=== PATIENT | male | born 1965 | race Caucasian/White ===

== ENCOUNTER 2020-02-25 08:19 | Inpatient (IN) | payer SELFPAY ==
[2020-02-25] MEDS ORDERED: LORAZEPAM INJ 2 MG/1 ML VIAL IV ONE ×2 (08:36→10:00)
[2020-02-25] MEDS ORDERED: NORMAL SALINE 1000 ML 1,000 ML IV ONE (08:38)
[2020-02-25 08:55] LABS: ABSOLUTE BASOPHILS # (AUTO) 0.1 10^3/uL (0.0-0.2); ABSOLUTE LYMPHOCYTES (AUTO) 1.3 10^3/uL (0.5-4.7); ABSOLUTE MONOCYTES (AUTO) 0.5 10^3/uL (0.1-1.4); ABSOLUTE NEUT (AUTO) 8.1 10^3/uL (1.7-8.2); BASOPHILS % (AUTO) 0.6 % (0-2); EOSINOPHILS % (AUTO) 0.1 % (0-6); HEMATOCRIT 47.1 % (37.9-51.0); HEMOGLOBIN 16.1 g/dL (13.5-17.0); LYMPHOCYTES % (AUTO) 12.8 % (13-45); MEAN CORPUSCULAR HEMOGLOBIN 31.8 pg (27.0-33.4); MEAN CORPUSCULAR HGB CONC 34.1 g/dL (32.0-36.0); MEAN CORPUSCULAR VOLUME 93 fl (80-97); MONOCYTES % (AUTO) 4.7 % (3-13); PLATELET COUNT 231 10^3/uL (150-450); RED BLOOD COUNT 5.05 10^6/uL (4.35-5.55); RED CELL DISTRIBUTION WIDTH 13.6 % (11.5-14.0); SEGMENTED NEUTROPHILS % (AUTO) 81.8 % (42-78); TOTAL CELLS COUNTED % (AUTO) 100 %; WHITE BLOOD COUNT 9.9 10^3/uL (4.0-10.5)
--- NOTE | 2020-02-25 09:04 | RADIOLOGY REPORT (SQ) ---
EXAM DESCRIPTION: CT HEAD WITHOUT IMAGES COMPLETED DATE/TIME: 02/25/2020 8:36 am REASON FOR STUDY: stroke s/s COMPARISON: None. TECHNIQUE: Axial images acquired through the brain without intravenous contrast. Images reviewed wi th bone, brain and subdural windows. Additional sagittal and coronal reconstructions were generated. Images stored on PACS. All CT scanners at this facility use dose modulation, iterative reconstruction, and/or weight based d osing when appropriate to reduce radiation dose to as low as reasonably achievable (ALARA). [facility]: Dose Right [facility]: CareDose [facility]: Dose Right [facility]: Teradose 4D [facility]: [employer] RADIATION DOSE: mGy. LIMITATIONS: Motion artifact. FINDINGS: VENTRICLES: Normal size and contour. CEREBRUM: No masses. No hemorrhage. No midline shift. No evidence for acute infarction. Normal gra y/white matter differentiation. No areas of low density in the white matter. CEREBELLUM: No masses. No hemorrhage. No alteration of density. No evidence for acute infarction. EXTRAAXIAL SPACES: No fluid collections. No masses. ORBITS AND GLOBE: No intra- or extraconal masses. Normal contour of globe without masses. CALVARIUM: No fracture. PARANASAL SINUSES: No fluid or mucosal thickening. SOFT TISSUES: No mass or hematoma. OTHER: No other significant finding. IMPRESSION: NORMAL BRAIN CT WITHOUT CONTRAST. EVIDENCE OF ACUTE STROKE: NO. COMMENT: Pertinent positive or negative findings of the imaging study reported as a CRITICAL EXAM t augie Connors at08:58 on 02/25/2020. Category of Critical Exam: Stroke alert. Quality ID # [id number]: Final reports with documentation of one or more dose reduction techniques (e.g., Au tomated exposure control, adjustment of the mA and/or kV according to patient size, use of iterative reconstruction technique) TECHNICAL DOCUMENTATION: JOB ID: [id number] 2010 [employer]- All Rights Reserved Reading location - IP/workstation name: [email or web address]
[2020-02-25 09:22] LABS: INTERNATIONAL RATION (INR) 0.88; PARTIAL THROMBOPLASTIN TIME 24.4 SEC (23.5-35.8); PROTHROMBIN TIME 12.1 SEC (11.4-15.4)
[2020-02-25 09:37] LABS: APPEARANCE,URINE CLEAR; BILIRUBIN,URINE NEGATIVE (NEGATIVE); COLOR,URINE YELLOW; GLUCOSE, URINE >=500 mg/dL (NEGATIVE); KETONES,URINE NEGATIVE (NEGATIVE); PROTEIN,URINE 100 mg/dL (NEGATIVE); URINE SPECIFIC GRAVITY 1.018; UROBILINOGEN,URINE NEGATIVE mg/dL (<2.0)
[2020-02-25 09:45] LABS: ALBUMIN 4.2 g/dL (3.5-5.0); ALCOHOL < 10 mg/dL (NONE DETECTED); ALKALINE PHOSPHATASE 65 U/L (38-126); ANION GAP 8 (5-19); ASPARTATE AMINO TRANSFERASE 37 U/L (17-59); BILIRUBIN,DIRECT 0.1 mg/dL (0.0-0.4); BILIRUBIN,TOTAL 0.5 mg/dL (0.2-1.3); BLOOD UREA NITROGEN 19 mg/dL (7-20); CALCIUM 9.3 mg/dL (8.4-10.2); CARBON DIOXIDE 27 mmol/L (22-30); CHLORIDE 106 mmol/L (98-107); GLUCOSE 108 mg/dL (75-110); POTASSIUM 4.1 mmol/L (3.6-5.0); TOTAL PROTEIN 7.1 g/dL (6.3-8.2)
[2020-02-25 09:49] LABS: URINE AMPHETAMINES SCREEN NEGATIVE; URINE BARBITURATES SCREEN NEGATIVE; URINE BENZODIAZEPINES SCREEN NEGATIVE; URINE COCAINE SCREEN NEGATIVE; URINE MARIJUANA (THC) SCREEN NEGATIVE; URINE METHADONE SCREEN NEGATIVE; URINE PHENCYCLIDINE SCREEN NEGATIVE
--- NOTE | 2020-02-25 10:12 | ER Document Report ---
ED Dizziness/Weakness - General Chief Complaint: Altered Mental Status Stated Complaint: POSSIBLE STROKE Time Seen by Provider: 02/25/20 08:36 Mode of Arrival: Ambulatory Information source: Relative, Emergency Med Personnel - [facility] Notes: Patient presents with altered mental status. Patient was brought in by ambulance. Ambulance reports that stated patient woke up about 5 or 6 AM and was kicking her. When she tried to talk to him he was delirious and altered. Apparently when he went to bed he was in his normal state of health. Paramedics state that his initial blood sugar was 52 and they gave him an amp of D50 however did not change his mental status. There is been no known recent vomiting or diarrhea. No recent fevers cold chills or cough. No known Covid ex posures. No known trauma. No similar previous episodes. Past Medical History - General Information source: Relative - Social History Smoking Status: Current Every Day Smoker Frequency of alcohol use: None Drug Abuse: None Family History: Reviewed & Not Pertinent Review of Systems - Review of Systems -: Yes ROS unobtainable due to patient's medical condition - Cannot obtain review of symptoms due to altered mental status Physical Exam - Vital signs Vitals: Pulse Ox 99 02/25/20 08:55 Interpretation: Normal - General General appearance: Combative - HEENT Head: Normocephalic, Atraumatic Eyes: Normal Pupils: PERRL - Respiratory Respiratory status: No respiratory distress Chest status: Nontender Breath sounds: Normal Chest palpation: Normal - Cardiovascular Rhythm: Regular Heart sounds: Normal auscultation Murmur: No - Abdominal Inspection: Normal Distension: No distension Bowel sounds: Normal Tenderness: Nontender Organomegaly: No organomegaly - Back Back: Normal, Nontender - Extremities General upper extremity: Normal inspection, Nontender, Normal color, Normal ROM, Normal temperature General lower extremity: Normal inspection, Nontender, Normal color, Normal ROM, Normal temperature, Normal weight bearing. No: Brandon's sign - Neurological Neuro grossly intact: No Cognition: Confused Orientation: Disoriented to person, Disoriented to place, Disoriented to time, Disoriented to events [place] Coma Scale Eye Opening: Spontaneous Celia Coma Scale Verbal: Incomprehensible [place] Coma Scale Motor: Localizes to Pain [place] Coma Scale Total: 11 Additional motor exam normals: Other - Patient moves all extremities. There are no focal deficits. Patient just appears delirious. He will not follow any commands. He has occasionally making some incomprehensible noises but nothing understandable. - Psychological Associated symptoms: Agitated, Psychomotor agitation - Skin Skin Temperature: Warm Skin Moisture: Dry Skin Color: Normal Course - Re-evaluation Re-evalutation: 02/25/20 10:14 Patient presents with altered mental status. Patient would not follow any commands. He has been on purposeful flailing of the arms and legs. His vital signs however have been stable and normal. Head CT is unremarkable. All laboratories are essentially unremarkable. He has a history of diabetes but his glucose here is normal at 84. He has no focal deficits. His tox screen and alcohol level are also normal. Because the patient's delirium at this time is not obvious. He will need admitted and possibly will have to be consciously sedated for further testing such as an MRI. - Vital Signs Vital signs: Temp Pulse Resp BP Pulse Ox 99 02/25/20 08:55 - Laboratory Result Diagrams: 02/25/20 08:42 02/25/20 08:42 Laboratory results interpreted by me: 02/25/20 02/25/20 08:42 09:11 Lymph % (Auto) 12.8 L Seg Neutrophils % 81.8 H Urine Protein 100 H Urine Glucose (UA) >=500 H - Diagnostic Test Radiology reviewed: Image reviewed, Reports reviewed - EKG Interpretation by Me EKG shows normal: Sinus rhythm Rate: Normal - 69 Rhythm: NSR [place]/QRS: No: Right axis deviation, Left axis deviation Discharge - Discharge Clinical Impression: Delirium Condition: Serious Disposition: ADMITTED INPATIENT Admitting Provider: Ludin (Hospitalist) Unit Admitted: [facility]
--- NOTE | 2020-02-25 10:28 | RADIOLOGY REPORT (SQ) ---
EXAM DESCRIPTION: CHEST SINGLE VIEW IMAGES COMPLETED DATE/TIME: 02/25/2020 10:16 am REASON FOR STUDY: stroke s/s COMPARISON: None. EXAM PARAMETERS: NUMBER OF VIEWS: One view. TECHNIQUE: Single frontal radiographic view of the chest acquired. RADIATION DOSE: NA LIMITATIONS: None. FINDINGS: LUNGS AND PLEURA: No opacities, masses or pneumothorax. No pleural effusion. MEDIASTINUM AND HILAR STRUCTURES: No masses. Contour normal. HEART AND VASCULAR STRUCTURES: Heart normal in size. Normal vasculature. BONES: No acute findings. HARDWARE: None in the chest. OTHER: No other significant finding. IMPRESSION: NO ACUTE RADIOGRAPHIC FINDING IN THE CHEST. TECHNICAL DOCUMENTATION: JOB ID: [id number] 2010 [email or web address]- All Rights Reserved Reading location - IP/workstation name: [email or web address]
[2020-02-25] MEDS ORDERED: ACETAMINOPHEN 650 MG SUPP.RECT PR PRN (12:37)
[2020-02-25] MEDS ORDERED: ONDANSETRON HCL INJ/PF 4 MG/2 ML SDV IV PRN (12:37)
[2020-02-25] MEDS ORDERED: DEXTROSE 50%-WATER 25 GM/50 ML DISP.SYRIN IV PRN ×4 (12:37→13:56)
[2020-02-25] MEDS ORDERED: RINGERS SOLUTION,LACTATED 1,000 ML IV PRN (12:37)
[2020-02-25] MEDS ORDERED: GLUCAGON,HUMAN RECOMB 1 MG INJ SUBCUT PRN (12:37)
[2020-02-25] MEDS ORDERED: DEXTROSE 40% GEL 15 GM TUBE PO PRN ×4 (12:37→13:56)
[2020-02-25] MEDS ORDERED: LORAZEPAM INJ 2 MG/1 ML VIAL IV PRN ×2 (12:43→17:22)
[2020-02-25] MEDS ORDERED: HALOPERIDOL LACTATE INJ 5 MG/1 ML VIAL ONE (12:45)
[2020-02-25] MEDS ORDERED: MIDAZOLAM 2 MG/2 ML INJ IV ONE ×2 (12:49→23:30)
[2020-02-25] MEDS ORDERED: MIDAZOLAM 2 MG/2 ML INJ ONE ×2 (12:51→20:00)
[2020-02-25] MEDS ORDERED: HALOPERIDOL LACTATE INJ 5 MG/1 ML VIAL IV ONE ×2 (13:00→13:15)
--- NOTE | 2020-02-25 13:23 | EKG REPORT ---
SEVERITY:- ABNORMAL ECG - SINUS RHYTHM NONSPECIFIC INTRAVENTRICULAR CONDUCTION DELAY : Confirmed by: Kavon Mars MD 25-Feb-2020 13:22:50
[2020-02-25] MEDS ORDERED: HALOPERIDOL LACTATE INJ 5 MG/1 ML VIAL IV PRN (13:47)
[2020-02-25] MEDS ORDERED: GLUCAGON,HUMAN RECOMB 1 MG INJ IM PRN (13:56)
[2020-02-25] MEDS ORDERED: THIAMINE HCL 100 MG, FOLIC ACID 1 MG in NORMAL SALINE 250 ML IV ONE (14:30)
[2020-02-25] MEDS: DEXTROSE 5%-NORMAL SALINE 1,000 ML IV PRN (15:07)
[2020-02-25] MEDS: ENOXAPARIN SODIUM INJ 40 MG/0.4 ML DISP.SYRIN SUBCUT SCH (15:48)
[2020-02-25] MEDS ORDERED: ETOMIDATE INJ/PF 20 MG/10 ML SDV IV ONE ×2 (19:15→23:30)
[2020-02-25] MEDS ORDERED: PROPOFOL 1,000 MG/100 ML INFUS..BTL IV ONE ×2 (19:18→22:13)
[2020-02-25] MEDS: PROPOFOL 1,000 MG/100 ML INFUS..BTL IV PRN ×2 (19:20→22:00)
--- NOTE | 2020-02-25 19:41 | PDOC H&P ---
History of Present Illness Admission Date/PCP: 02/25/20 10:25 Patient complains of: altered mental status History of Present Illness: VANESSA HAIRSTON is a 54 year old male, past medical history of diabetes on insulin who was brought to the ED today due to altered mental status. Most of the history taken from the . The patient was apparently well when he went to sleep last night and then his was awoken by him this morning when he started kicking her and flailing his arms with no purposeful movement this happened at around 6 AM he was also mumbling incoherently and was very agitated. EMS was called who checked his initial blood sugar and was found to be 52 and he was given 1 amp of D50 which did not change his mental status. Emergency room blood pressure 148/54, heart rate 83, temperature 99.7, O2 sat 98%. He was noted to be very agitated pulling out his lines and mumbling incoherently. CT head negative. CBC and CMP unremarkable. Urine toxicology negative. Serum alcohol less than 10. Urinalysis no signs of infection. According to the he he has no recent travel, no new medications that he is taking, no recent illness. He is an occasional alcoholic drinker but has not had any alcohol intake for the past several days. Remote history of drug use 20 years ago but according to the he has not used anything for the past several years. He was given several doses of Ativan and Haldol in the emergency room before he would calm down. Hospitalist service was called to admit the patient. Past Medical History Cardiac Medical History: Reports: None Pulmonary Medical History: Reports: None EENT Medical History: Reports: None Neurological Medical History: Reports: None Endocrine Medical History: Reports: Diabetes Mellitus Type 2 Renal/ Medical History: Reports: None Malignancy Medical History: Reports: None GI Medical History: Reports: None Musculoskeltal Medical History: Reports: None Skin Medical History: Reports: None Psychiatric Medical History: Reports: None Hematology: Reports: None Infectious Medical History: Reports: None Past Surgical History Past Surgical History: Reports: None Social History Lives with: Spouse/Significant other Smoking Status: Current Every Day Smoker Family History Family History: Reviewed & Not Pertinent Family History: Unable to obtain due to patient's mental status Parental Family History Reviewed: No Children Family History Reviewed: No Sibling(s) Family History Reviewed.: No Medication/Allergy Home Medications: Insulin Aspart [Novolog Insulin 100 Unit/1 ml 10 ml] 0 unit SUBCUT .SLD SCALE 02/25/20 Insulin Glargine,Hum.rec.anlog [Clayton Cotter] 60 unit SQ QAM 02/25/20 Allergies/Adverse Reactions: Sulfa (Sulfonamide Antibiotics) Allergy (Verified 02/25/20 13:39) Review of Systems ROS unobtainable: Due to mental status Physical Exam Vital Signs: Temp Pulse Resp BP Pulse Ox 16 128/76 H 100 02/25/20 18:31 02/25/20 18:31 02/25/20 18:31 Intake & Output 02/24/20 02/25/20 02/26/20 06:59 06:59 06:59 Intake Total 1371.2 Balance 1371.2 General appearance: PRESENT: well-developed, well-nourished Head exam: PRESENT: atraumatic, normocephalic Eye exam: PRESENT: EOMI, PERRLA. ABSENT: nystagmus Ear exam: PRESENT: normal external ear exam Mouth exam: PRESENT: moist Neck exam: ABSENT: meningismus Respiratory exam: PRESENT: clear to auscultation nikolas, symmetrical, unlabored Vascular exam: PRESENT: normal capillary refill GI/Abdominal exam: PRESENT: normal bowel sounds, soft. ABSENT: distended Extremities exam: PRESENT: full ROM Musculoskeletal exam: PRESENT: full ROM Neurological exam: PRESENT: other - Patient is very confused and agitated, un able to provide history. He is able to say that he wants to pee but does not understand instructions and is very delirious. Psychiatric exam: PRESENT: agitated Skin exam: PRESENT: normal color Results Laboratory Results: 02/25/20 08:42 02/25/20 08:42 02/25/20 02/25/20 02/25/20 08:42 08:42 09:11 WBC 9.9 RBC 5.05 Hgb 16.1 Hct 47.1 MCV 93 MCH 31.8 MCHC 34.1 RDW 13.6 Plt Count 231 Seg Neutrophils % 81.8 H Sodium 140.5 Potassium 4.1 Chloride 106 Carbon Dioxide 27 Anion Gap 8 BUN 19 Creatinine 0.68 Est GFR ( Amer) > 60 Glucose 108 Calcium 9.3 Magnesium Total Bilirubin 0.5 AST 37 Alkaline Phosphatase 65 Ammonia Total Protein 7.1 Albumin 4.2 TSH Urine Color YELLOW Urine Appearance CLEAR Urine pH 7.0 Ur Specific [place] 1.018 Urine Protein 100 H Urine Glucose (UA) >=500 H Urine Ketones NEGATIVE Urine Blood NEGATIVE Urine RBC (Auto) 2 02/25/20 02/25/20 02/25/20 15:10 15:10 15:10 WBC RBC Hgb Hct MCV MCH MCHC RDW Plt Count Seg Neutrophils % Sodium Potassium Chloride Carbon Dioxide Anion Gap BUN Creatinine Est GFR ( Amer) Glucose Calcium Magnesium 1.7 Total Bilirubin AST Alkaline Phosphatase Ammonia 31.4 Total Protein Albumin TSH 0.64 Urine Color Urine Appearance Urine pH Ur Specific [place] Urine Protein Urine Glucose (UA) Urine Ketones Urine Blood Urine RBC (Auto) 02/25/20 08:42 Troponin I < 0.012 Impressions: Chest X-Ray 02/25/20 08:23 IMPRESSION: NO ACUTE RADIOGRAPHIC FINDING IN THE CHEST. Head CT 02/25/20 08:23 IMPRESSION: NORMAL BRAIN CT WITHOUT CONTRAST. EVIDENCE OF ACUTE STROKE: NO. Assessment and Plan - Diagnosis (1) Acute encephalopathy Is this a current diagnosis for this admission?: Yes Plan: -Came in due to agitation and delirium noted at 6 AM this morning. Previously normal prior to presentation, no recent illness -Per 's description it does not seem that he had a seizure, no loss of bowel or bladder function -Noted with hypoglycemia, given D50 but this has not changed his confusional state. -Unable to perform full neurologic exam due to altered mental status but he is able to move his extremities. Unable to follow commands -Afebrile, blood pressure normal -CT head negative -CBC unremarkable no white count -CMP normal besides borderline low to normal blood glucose, no electrolyte abnormalities -Urine toxicology normal -UA no UTI - Ddx: stroke, seizure disorder, drug-induced, hypoglycemia, meningitis less likely given no fever and no WBC count. -MRI pending. Given his agitated state may need anesthesia for sedation. He might also need a lumbar tap -EEG, RPR -IV fluids and thiamine -No indication for antibiotics as he is afebrile with no white count. -Accu-Cheks every 2 hours -Haldol and Ativan as needed -On four-point hard restraints due to agitation. Patient needs to be in the ICU for 1-1 nursing care. 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 Management as above -We will keep him n.p.o. for now (4) Hypoglycemia Is this a current diagnosis for this admission?: Yes Plan: -Noted to be hypoglycemic this morning to 52 -Accu-Cheks every 2 hours -Hold his long-acting insulin and put him on sliding scale -Hypoglycemia protocol - Plan Summary Summary: Patient will be admitted in the ICU due to need for four-point restraint due to severe agitation. Hospitalist will be the attending physician for him. Work-up ongoing for acute confusional state. MRI pending. - Time Time Spent with patient: 35 or more minutes Anticipated Discharge Disposition: Home, Self Care Anticipated Discharge Timeframe: to be determined. - Inpatient Certification Medical Necessity: Need Close Monitoring Due to Risk of Patient Decompensation
[2020-02-25] MEDS ORDERED: MIDAZOLAM HCL 50 MG/100 ML RTUINJ ONE (20:00)
[2020-02-25] MEDS: MIDAZOLAM HCL 50 MG/100 ML RTUINJ IV PRN (20:00)
--- NOTE | 2020-02-25 20:03 | Progress Note ---
Provider Note Provider Note: The patient was intubated for airway protection and severe agitation. Spoke to Sarah ANDREWS who performed the intubation. Transfer orders done, transfer of service to Dr. Marroquin.
--- NOTE | 2020-02-25 20:59 | RADIOLOGY REPORT (SQ) ---
EXAM DESCRIPTION: X-ray, single view of the chest CLINICAL HISTORY: 54 years Male, ETT placement COMPARISON: Single view of the chest obtained earlier in the day at 10:05 AM FINDINGS: Lungs: Both lung apices in the right lateral chest has been excluded from this exam. In the visualized portion of the long there is no abnormality. There is been improvement in lung volumes and aeration when compared to the previous exam. Mediastinum: Cardiac and mediastinal silhouette are unchanged. An NG tube passes through the esophagus and into the stomach. Endotracheal tube is in place and terminates 4.6 cm above the felipa. Bones: Osseous structures are normal. IMPRESSION: NG tube and endotracheal tube are in good position.
--- NOTE | 2020-02-25 23:24 | CRITICAL CARE ADMISSION REPORT ---
HPI Date:: 02/25/20 Time:: 19:30 Reason for ICU Reason:: AMS Admission Date/Time & PCP: Admission Date/Time: 02/25/20 10:25 Primary Care Provider: HPI: VANESSA HAIRSTON is a 54 year old male, past medical history of diabetes on insulin who was brought to the ED today due to altered mental status. Most of the history taken from the . The patient was apparently well when he went to sleep last night and then his was awoken by him this morning when he started kicking her and flailing his arms with no purposeful movement this happened at around 6 AM he was also mumbling incoherently and was very agitated. EMS was called who checked his initial blood sugar and was found to be 52 and he was given 1 amp of D50 which did not change his mental status. Emergency room blood pressure 148/54, heart rate 83, temperature 99.7, O2 sat 98%. He was noted to be very agitated pulling out his lines and mumbling incoherently. CT head negative. CBC and CMP unremarkable. Urine toxicology negative. Serum alcohol less than 10. Urinalysis no signs of infection. According to the he he has no recent travel, no new medications that he is taking, no recent illness. He is an occasional alcoholic drinker but has not had any alcohol intake for the past several days. Remote history of drug use 20 years ago but according to the he has not used anything for the past several years. He was given several doses of Ativan and Haldol in the emergency room before he would calm down. Hospitalist service was called to admit the patient. Plan Summary: - Diagnosis (1) Acute encephalopathy Is this a current diagnosis for this admission?: Yes Plan: -Came in due to agitation and delirium noted at 6 AM this morning. Previously normal prior to presentation, no recent illness -Per 's description it does not seem that he had a seizure, no loss of bowel or bladder function -Noted with hypoglycemia, given D50 but this has not changed his confusional state. -Unable to perform full neurologic exam due to altered mental status but he is able to move his extremities. Unable to follow commands -Afebrile, blood pressure normal -CT head negative -CBC unremarkable no white count -CMP normal besides borderline low to normal blood glucose, no electrolyte abnormalities -Urine toxicology normal -UA no UTI - Ddx: stroke, seizure disorder, drug-induced, hypoglycemia, meningitis less likely given no fever and no WBC count. -MRI pending. Given his agitated state may need anesthesia for sedation. He might also need a lumbar tap -EEG, RPR -IV fluids and thiamine -No indication for antibiotics as he is afebrile with no white count. -Accu-Cheks every 2 hours -Haldol and Ativan as needed -On four-point hard restraints due to agitation. Patient needs to be in the ICU for 1-1 nursing care. -Intubated for airway protection (2) Diabetes mellitus Qualifiers: Diabetes mellitus halfway insulin use: with intermediate project manager use Diabetes mellitus complication status: with hypoglycemia Is this a current diagnosis for this admission?: Yes Plan: -Known diabetic on glargine 60 units in the morning and sliding scale insulin -Noted to be hypoglycemic this morning to 52 -Accu-Cheks every 2 hours -Sliding scale insulin -Hypoglycemia protocol -We will check A1c (3) Delirium Is this a current diagnosis for this admission?: Yes Plan: Unclear cause for now work-up ongoing. Management as above -We will keep him n.p.o. for now (4) Hypoglycemia Is this a current diagnosis for this admission?: Yes Plan: -Noted to be hypoglycemic this morning to 52 -Accu-Cheks every 2 hours -Hold his long-acting insulin and put him on sliding scale -Hypoglycemia protocol Past Medical History Cardiac Medical History: Reports: None Pulmonary Medical History: Reports: None EENT Medical History: Reports: None Neurological Medical History: Reports: None Endocrine Medical History: Reports: Diabetes Mellitus Type 2 Renal/ Medical History: Reports: None Malignancy Medical History: Reports: None GI Medical History: Reports: None Musculoskeltal Medical History: Reports: None Skin Medical History: Reports: None Psychiatric Medical History: Reports: None Denies: Depression Hematology: Reports: None Infectious Medical History: Reports: None Past Surgical History Past Surgical History: Reports: None Social/Family History - Social History Lives with: Spouse/Significant other Smoking Status: Current Every Day Smoker - Medication/Allergies Home Medications: Insulin Aspart [Novolog Insulin 100 Unit/1 ml 10 ml] 0 unit SUBCUT .SLD SCALE 02/25/20 Insulin Glargine,Hum.rec.anlog [Toujeo Solostar] 60 unit SQ QAM 02/25/20 Allergies/Adverse Reactions: Sulfa (Sulfonamide Antibiotics) Allergy (Verified 02/25/20 13:39) Review of Systems ROS unobtainable: Due to mental status Physical Exam Vital Signs: Temp Pulse Resp BP Pulse Ox 99.7 F 115 H 15 139/70 H 100 02/25/20 19:33 02/25/20 19:33 02/25/20 20:16 02/25/20 22:00 02/25/20 22:01 Intake & Output 02/24/20 02/25/20 02/26/20 06:59 06:59 06:59 Intake Total 1371.2 Output Total 250 Balance 1121.2 Weight 91.8 kg Weight/Height Weight 91.8 kg Height 6 ft 2 in General appearance: PRESENT: severe distress Head exam: PRESENT: atraumatic, normocephalic Eye exam: PRESENT: PERRLA Mouth exam: PRESENT: moist Teeth exam: PRESENT: poor dentation Neck exam: PRESENT: full ROM Respiratory exam: PRESENT: decreased breath sounds Cardiovascular exam: PRESENT: +S1, +S2, tachycardia Pulses: PRESENT: normal radial pulses GI/Abdominal exam: PRESENT: normal bowel sounds Extremities exam: PRESENT: full ROM Neurological exam: PRESENT: altered Psychiatric exam: PRESENT: agitated, anxious, manic Focused psych exam: PRESENT: psychomotor agitation, restlessness Tubes/Lines: PRESENT: Endotracheal Tube Laboratory/Radiographs Laboratory Results: 02/25/20 08:42 02/25/20 08:42 02/25/20 02/25/20 02/25/20 08:42 08:42 09:11 WBC 9.9 RBC 5.05 Hgb 16.1 Hct 47.1 MCV 93 MCH 31.8 MCHC 34.1 RDW 13.6 Plt Count 231 Seg Neutrophils % 81.8 H Sodium 140.5 Potassium 4.1 Chloride 106 Carbon Dioxide 27 Anion Gap 8 BUN 19 Creatinine 0.68 Est GFR ( Amer) > 60 Glucose 108 Calcium 9.3 Magnesium Total Bilirubin 0.5 AST 37 Alkaline Phosphatase 65 Ammonia Total Protein 7.1 Albumin 4.2 Vitamin B12 TSH Urine Color YELLOW Urine Appearance CLEAR Urine pH 7.0 Ur Specific [place] 1.018 Urine Protein 100 H Urine Glucose (UA) >=500 H Urine Ketones NEGATIVE Urine Blood NEGATIVE Urine RBC (Auto) 2 02/25/20 02/25/20 02/25/20 15:10 15:10 15:10 WBC RBC Hgb Hct MCV MCH MCHC RDW Plt Count Seg Neutrophils % Sodium Potassium Chloride Carbon Dioxide Anion Gap BUN Creatinine Est GFR ( Amer) Glucose Calcium Magnesium 1.7 Total Bilirubin AST Alkaline Phosphatase Ammonia 31.4 Total Protein Albumin Vitamin B12 TSH 0.64 Urine Color Urine Appearance Urine pH Ur Specific [place] Urine Protein Urine Glucose (UA) Urine Ketones Urine Blood Urine RBC (Auto) 02/25/20 18:55 WBC RBC Hgb Hct MCV MCH MCHC RDW Plt Count Seg Neutrophils % Sodium Potassium Chloride Carbon Dioxide Anion Gap BUN Creatinine Est GFR ( Amer) Glucose Calcium Magnesium Total Bilirubin AST Alkaline Phosphatase Ammonia Total Protein Albumin Vitamin B12 991.0 H TSH Urine Color Urine Appearance Urine pH Ur Specific [place] Urine Protein Urine Glucose (UA) Urine Ketones Urine Blood Urine RBC (Auto) 02/25/20 08:42 Troponin I < 0.012 Impressions: Chest X-Ray 02/25/20 08:23 IMPRESSION: NO ACUTE RADIOGRAPHIC FINDING IN THE CHEST. Head CT 02/25/20 08:23 IMPRESSION: NORMAL BRAIN CT WITHOUT CONTRAST. EVIDENCE OF ACUTE STROKE: NO. All labs, radiographs, diagnostic studies and EKGs were personally reviewed: Yes In addition, reports of radiographic and diagnostic studies were read: Yes Critical Time Critical Time (minutes): 70 -: The care of a critically ill patient is dynamic. This note represents a static moment in the admission process. Orders and treatments may be given simultaneously and urgently, and time is not entry level marketing representative of the treatment process. This patient requires Critical Care secondary to life threatening organ or limb dysfunction. Without Critical Care services, the patient is at risk for increased mortality and morbidity.
[2020-02-25] MEDS ORDERED: ROCURONIUM BROMIDE INJ 50 MG/5 ML VIAL IV ONE (23:30)
[2020-02-26] MEDS: DEXTROSE 5%-NORMAL SALINE 1,000 ML IV PRN (00:47)
[2020-02-26] MEDS: PROPOFOL 1,000 MG/100 ML INFUS..BTL IV PRN ×6 (01:39→22:06)
[2020-02-26 04:03] LABS: ABSOLUTE EOSINOPHILS # (AUTO) 0.2 10^3/uL (0.0-0.6); ABSOLUTE LYMPHOCYTES (AUTO) 2.9 10^3/uL (0.5-4.7); ABSOLUTE NEUT (AUTO) 7.3 10^3/uL (1.7-8.2); BASOPHILS % (AUTO) 0.4 % (0-2); EOSINOPHILS % (AUTO) 1.7 % (0-6); HEMATOCRIT 45.1 % (37.9-51.0); HEMOGLOBIN 15.2 g/dL (13.5-17.0); LYMPHOCYTES % (AUTO) 25.5 % (13-45); MEAN CORPUSCULAR HEMOGLOBIN 31.5 pg (27.0-33.4); MEAN CORPUSCULAR HGB CONC 33.6 g/dL (32.0-36.0); MEAN CORPUSCULAR VOLUME 94 fl (80-97); MONOCYTES % (AUTO) 8.7 % (3-13); PLATELET COUNT 211 10^3/uL (150-450); RED BLOOD COUNT 4.82 10^6/uL (4.35-5.55); RED CELL DISTRIBUTION WIDTH 13.6 % (11.5-14.0); SEGMENTED NEUTROPHILS % (AUTO) 63.7 % (42-78); TOTAL CELLS COUNTED % (AUTO) 100 %; WHITE BLOOD COUNT 11.4 10^3/uL (4.0-10.5)
[2020-02-26 04:20] LABS: ALBUMIN 3.3 g/dL (3.5-5.0); ALKALINE PHOSPHATASE 60 U/L (38-126); ANION GAP 5 (5-19); ASPARTATE AMINO TRANSFERASE 26 U/L (17-59); BILIRUBIN,DIRECT 0.1 mg/dL (0.0-0.4); BILIRUBIN,TOTAL 0.7 mg/dL (0.2-1.3); BLOOD UREA NITROGEN 13 mg/dL (7-20); CALCIUM 9.1 mg/dL (8.4-10.2); CARBON DIOXIDE 25 mmol/L (22-30); CHLORIDE 111 mmol/L (98-107); GLUCOSE 137 mg/dL (75-110); TOTAL PROTEIN 5.7 g/dL (6.3-8.2)
[2020-02-26] MEDS ORDERED: DEXTROSE 40% GEL 15 GM TUBE PO PRN ×2 (06:07)
[2020-02-26] MEDS ORDERED: GLUCAGON,HUMAN RECOMB 1 MG INJ IM PRN (06:07)
[2020-02-26] MEDS ORDERED: DEXTROSE 50%-WATER 25 GM/50 ML DISP.SYRIN IV PRN ×2 (06:07)
[2020-02-26] MEDS: INSULIN REG, HUMAN 100 UNIT/ML 3 ML VIAL (PYX) SUBCUT SCH ×3 (06:24→17:25)
[2020-02-26] MEDS: MIDAZOLAM HCL 50 MG/100 ML RTUINJ IV PRN ×3 (07:11→22:06)
--- NOTE | 2020-02-26 09:16 | PDOC CRITICAL CARE PROG REPORT ---
General Date:: 02/26/20 ICU Day:: 2 Ventilator Day:: 1 Hospital Day:: 2 Resuscitation Status: Full Code Events in the past 12 to 24 Hours:: Still unmanagable requiring sedation and intubation. Review of systems relevant to events:: Neurological Reason for ICU Addmission:: AMS requiring much sedation and intubation. - Medications: Medications reviewed and adjusted accordingly: Yes Vasopressors:: None Sedation:: Versed and diprivan. Physical Exam Vital Signs: Temp Pulse Resp BP Pulse Ox 97.3 F 115 H 15 124/70 98 02/26/20 02:00 02/25/20 19:33 02/25/20 20:16 02/26/20 06:00 02/26/20 09:01 Intake & Output 02/25/20 02/26/20 02/27/20 06:59 06:59 06:59 Intake Total 3296.2 91 Output Total 445 350 Balance 2851.2 -259 Weight 93.1 kg Weight/Height Weight 93.1 kg Height 6 ft 2 in General appearance: PRESENT: no acute distress Head exam: PRESENT: atraumatic, normocephalic Eye exam: PRESENT: conjunctiva pink, EOMI, PERRLA. ABSENT: scleral icterus Ear exam: PRESENT: normal external ear exam Mouth exam: PRESENT: moist, tongue midline Respiratory exam: PRESENT: clear to auscultation nikolas, decreased breath sounds. ABSENT: rales, rhonchi, wheezes Cardiovascular exam: PRESENT: RRR. ABSENT: diastolic murmur, rubs, systolic murmur GI/Abdominal exam: PRESENT: normal bowel sounds, soft. ABSENT: distended, guarding, mass, organolmegaly, rebound, tenderness Rectal exam: PRESENT: deferred Gentrourinary exam: PRESENT: indwelling catheter Extremities exam: PRESENT: full ROM. ABSENT: calf tenderness, clubbing, pedal edema Musculoskeletal exam: PRESENT: normal inspection Neurological exam: PRESENT: other - Sedated Skin exam: PRESENT: dry, intact, warm. ABSENT: cyanosis, rash Tubes/Lines: PRESENT: Endotracheal Tube, Nasogastic Tube Laboratory/Radiographs Laboratory Results: 02/26/20 03:54 02/26/20 03:54 02/25/20 02/25/20 02/25/20 08:42 09:11 15:10 WBC RBC Hgb Hct MCV MCH MCHC RDW Plt Count Seg Neutrophils % Sodium 140.5 Potassium 4.1 Chloride 106 Carbon Dioxide 27 Anion Gap 8 BUN 19 Creatinine 0.68 Est GFR ( Amer) > 60 Glucose 108 Calcium 9.3 Magnesium 1.7 Total Bilirubin 0.5 AST 37 Alkaline Phosphatase 65 Ammonia Total Protein 7.1 Albumin 4.2 Vitamin B12 TSH Urine Color YELLOW Urine Appearance CLEAR Urine pH 7.0 Ur Specific [place] 1.018 Urine Protein 100 H Urine Glucose (UA) >=500 H Urine Ketones NEGATIVE Urine Blood NEGATIVE Urine RBC (Auto) 2 02/25/20 02/25/20 02/25/20 15:10 15:10 18:55 WBC RBC Hgb Hct MCV MCH MCHC RDW Plt Count Seg Neutrophils % Sodium Potassium Chloride Carbon Dioxide Anion Gap BUN Creatinine Est GFR ( Amer) Glucose Calcium Magnesium Total Bilirubin AST Alkaline Phosphatase Ammonia 31.4 Total Protein Albumin Vitamin B12 991.0 H TSH 0.64 Urine Color Urine Appearance Urine pH Ur Specific [place] Urine Protein Urine Glucose (UA) Urine Ketones Urine Blood Urine RBC (Auto) 02/26/20 02/26/20 03:54 03:54 WBC 11.4 H RBC 4.82 Hgb 15.2 Hct 45.1 MCV 94 MCH 31.5 MCHC 33.6 RDW 13.6 Plt Count 211 Seg Neutrophils % 63.7 Sodium 141.3 Potassium 4.0 Chloride 111 H Carbon Dioxide 25 Anion Gap 5 BUN 13 Creatinine 0.63 Est GFR ( Amer) > 60 Glucose 137 H Calcium 9.1 Magnesium Total Bilirubin 0.7 AST 26 Alkaline Phosphatase 60 Ammonia Total Protein 5.7 L Albumin 3.3 L Vitamin B12 TSH Urine Color Urine Appearance Urine pH Ur Specific [place] Urine Protein Urine Glucose (UA) Urine Ketones Urine Blood Urine RBC (Auto) 02/25/20 08:42 Troponin I < 0.012 Impressions: Chest X-Ray 02/25/20 08:23 IMPRESSION: NO ACUTE RADIOGRAPHIC FINDING IN THE CHEST. Head CT 02/25/20 08:23 IMPRESSION: NORMAL BRAIN CT WITHOUT CONTRAST. EVIDENCE OF ACUTE STROKE: NO. EKG: Sinus rythym with non-specific conduction delay. All labs, radiographs, diagnostic studies and EKGs were personally reviewed: Yes In addition, reports of radiographic and diagnostic studies were read: Yes Assessment and Plan - Diagnosis (1) Delirium Is this a current diagnosis for this admission?: Yes Plan: The etiology is not clear. Tox screen unremarkable. ETOH 0. Hypoglycemia resolved. The question of bath salts is raised with no clear proof. Hes had an EEG. Will try to lighten sedation throughout the day and see if he is still delirious. (2) Diabetes mellitus Qualifiers: Diabetes mellitus [facility] insulin use: with [facility] use Diabetes mellitus complication status: with hypoglycemia Is this a current diagnosis for this admission?: Yes Plan: Controlled (3) Hypoglycemia Is this a current diagnosis for this admission?: Yes Plan: Lowest recorded BG is 52 at his house. No recurrence. Plan Summary: Keep intubated and gradually lighten sedation. Critical Time Critical Time (minutes): 35 Level of Care: ICU Anticipated discharge: Home Anticipated DC Timeframe: Other -: 1. The care of a critical patient is a dynamic process. This note is a technical support representative synopsis but static in nature. The timeframe for treatments given in order is not necessarily the actual time these treatments may have been done. 2. This patient requires critical care secondary to ongoing requirements for therapy not offered or safe outside the critical care environment. Transfer to a lower level of care will result in altered life or limb morbidity and mortality. 3. Multidisciplinary rounds completed. 4. ABCDE bundle addressed.
[2020-02-26] MEDS: ENOXAPARIN SODIUM INJ 40 MG/0.4 ML DISP.SYRIN SUBCUT SCH (09:51)
[2020-02-26] MEDS: PANTOPRAZOLE SODIUM 40 MG VIAL IV SCH (12:17)
--- NOTE | 2020-02-26 13:48 | NEURO WORKBENCH EEG REPORT ---
EEG Report Patient: Isaac Bowman ID: [id number] Referring Doctor: Bari Churchill DOS: 02/26/2020 Medications: Versed, diprivan History This is a 54 year old male with a history of type 2 diabetes admitted with acute encephalopathy. Intubated in soft restraints. Temperature 36.8. This EEG was requested for agitation and confusion. EEG Interpretation This EEG was recorded with the patient intubated. The EEG is characterized by a burst suppression pattern with suppressed periods of a few seconds duration intermixed with bursts of a few seconds duration that typically start with sharply contoured activity in the beta frequency range followed by a mixture of primarily theta and alpha frequency activity. Some of the sharply contoured waveforms appear more like sharp waves in the left frontal region (maximal F3). There was no noted posterior dominant rhythm. There appeared to be some reactivity to passive eye opening-closing with slight frequency change that was subtle. Photic stimulation resulted in no significant changes. The EKG showed a regular rhythm. EEG Classification * Burst suppression * Sharp waves, occasional, left frontal EEG Impression This EEG is severely abnormal. The sharp waves are suggestive of a potentially epileptogenic focus in the left frontal region. Burst suppression can be seen with several etiologies including but not limited to anesthetic medications. If clinically indicated, repeating the EEG without anesthetics may be of benefit. INTERPRETING NEUROLOGIST: Jodee hO MD, FRCPC Board Certified in Neurology, with special qualification in Child Neurology, and in Clinical Neurophysiology [facility]
[2020-02-26] MEDS ORDERED: ACETAMINOPHEN 325 MG TABLET NG PRN (15:05)
[2020-02-26] MEDS ORDERED: ACETAMINOPHEN 325 MG TABLET ONE (15:08)
[2020-02-26] MEDS ORDERED: LEVETIRACETAM 1,000 MG in NORMAL SALINE 100 ML IV SCH (15:30)
[2020-02-26] MEDS: LEVETIRACETAM 1000 MG/NACL-ISO 1,000 MG/100 ML RTUPB IV SCH (17:25)
[2020-02-26] MEDS ORDERED: CEFTRIAXONE 2 GM/D5W RTU 2 GM/50 ML RTUPB IV SCH (19:15)
[2020-02-26] MEDS: RINGERS SOLUTION,LACTATED 1,000 ML IV PRN (19:18)
[2020-02-26] MEDS ORDERED: ETOMIDATE INJ/PF 20 MG/10 ML SDV IV ONE (20:06)
--- NOTE | 2020-02-26 20:47 | Operative Report ---
Bedside Procedure - History of Present Illness Indication for Procedure: Fever confusion Date: 02/26/20 Provider: JIM BRIGGS - Lumbar Puncture Lumbar puncture Consent obtained: Yes Lumbar puncture pre-procedure: Sterile PPE donned, Betadine prep applied, Chloraprep applied, Sterile drapes applied Patient position: Lying Anesthetic type: 1% Lidocaine mL's of anesthetic: 3 Amount/type of drainage: unable to obtain CSF Number of attempts: 2 Complications: No - Moves all extremities Notes: 02/26/20 20:46 Unable to obtain fluid after 2 attempts removed needle placed patient on back, Moves all extremities.
--- NOTE | 2020-02-26 20:49 | Operative Report ---
Bedside Procedure - History of Present Illness Indication for Procedure: Airway Protection Date: 02/26/20 Provider: JIM BRIGGS - Intubation Orotracheal Airway evaluation: Normal anatomy Mallampati Classification: Class 1 Medications: Etomidate, Other - Rocuronium Intubation method: Orotracheal Blade type: Marie Blade size: 4 ETT size: 8.0 ETT secured at: Gums ETT secured at (cm): 26 Post Intubation Xray: Yes Intubation Complications: No complications
[2020-02-26] MEDS ORDERED: NORMAL SALINE IV SCH (22:00)
[2020-02-26] MEDS ORDERED: ACYCLOVIR SODIUM IV SCH (22:00)
[2020-02-26] MEDS ORDERED: ACYCLOVIR SODIUM INJ/PF 500 MG/10 ML SDV IV SCH (22:00)
[2020-02-26] MEDS ORDERED: ACYCLOVIR SODIUM INJ/PF 500 MG/10 ML SDV IV ONE (22:31)
[2020-02-26] MEDS: ACYCLOVIR SODIUM 700 MG in NORMAL SALINE 100 ML IV SCH (22:59)
[2020-02-26] MEDS ORDERED: DIPHENHYDRAMINE HCL 50 MG/ML VIAL ONE (23:23)
[2020-02-26] MEDS ORDERED: METHYLPREDNISOLONE INJ 125 MG/2 ML SDV ONE (23:26)
[2020-02-26] MEDS ORDERED: DIPHENHYDRAMINE HCL 50 MG/ML VIAL IV ONE (23:59)
[2020-02-26] MEDS ORDERED: METHYLPREDNISOLONE INJ 125 MG/2 ML SDV IV ONE (23:59)
[2020-02-27] MEDS: INSULIN REG, HUMAN 100 UNIT/ML 3 ML VIAL (PYX) SUBCUT SCH ×5 (00:09→23:25)
[2020-02-27 01:04] LABS: ARTERIAL BLOOD BASE EXCESS -1.3 mmol/L; ARTERIAL BLOOD H2CO3 1.16 mmol/L (1.05-1.35); ARTERIAL BLOOD HCO3 23.2 mmol/L (20-24); ARTERIAL BLOOD O2 SATURATION 94.5 % (94-98); ARTERIAL BLOOD PCO2 38.4 mmHg (35-45); ARTERIAL BLOOD PO2 71.8 mmHg (80-100); ARTERIAL BLOOD TOTAL CO2 24.4 mmol/L (23-27)
[2020-02-27 01:05] LABS: ARTERIAL BLOOD FIO2 21%
[2020-02-27] MEDS: PROPOFOL 1,000 MG/100 ML INFUS..BTL IV PRN ×6 (01:33→23:47)
[2020-02-27] MEDS: RINGERS SOLUTION,LACTATED 1,000 ML IV PRN ×3 (02:53→18:27)
[2020-02-27 05:03] LABS: RED CELL DISTRIBUTION WIDTH 13.6 % (11.5-14.0)
[2020-02-27 05:06] LABS: HEMATOCRIT 43.7 % (37.9-51.0); MEAN CORPUSCULAR HGB CONC 34.2 g/dL (32.0-36.0); MEAN CORPUSCULAR VOLUME 94 fl (80-97); PLATELET COUNT 198 10^3/uL (150-450); RED BLOOD COUNT 4.67 10^6/uL (4.35-5.55)
[2020-02-27 05:10] LABS: ABSOLUTE LYMPHOCYTES# (MANUAL) 0.8 10^3/uL (0.5-4.7); ABSOLUTE MONOCYTES # (MANUAL) 0.6 10^3/uL (0.1-1.4); BASOPHILS % (MANUAL) 0 % (0-2); EOSINOPHILS % (MANUAL) 0 % (0-6); LYMPHOCYTES % (MANUAL) 5 % (13-45); MONOCYTES % (MANUAL) 4 % (3-13); SEGMENTED NEUTROPHILS % (MAN) 91 % (42-78); TOTAL CELLS COUNTED 100
[2020-02-27 05:11] LABS: PLATELET COMMENT ADEQUATE; RBC MORPHOLOGY COMMENT NORMO-CYTIC/CHROMIC
[2020-02-27 05:26] LABS: ALBUMIN 2.9 g/dL (3.5-5.0); ALKALINE PHOSPHATASE 58 U/L (38-126); ANION GAP 9 (5-19); ASPARTATE AMINO TRANSFERASE 19 U/L (17-59); BILIRUBIN,DIRECT 0.2 mg/dL (0.0-0.4); BILIRUBIN,TOTAL 0.6 mg/dL (0.2-1.3); BLOOD UREA NITROGEN 16 mg/dL (7-20); CALCIUM 8.7 mg/dL (8.4-10.2); CARBON DIOXIDE 20 mmol/L (22-30); CHLORIDE 110 mmol/L (98-107); GLUCOSE 206 mg/dL (75-110); POTASSIUM 4.3 mmol/L (3.6-5.0); TOTAL PROTEIN 5.1 g/dL (6.3-8.2)
[2020-02-27] MEDS: LEVETIRACETAM 1000 MG/NACL-ISO 1,000 MG/100 ML RTUPB IV SCH ×2 (05:49→19:07)
--- NOTE | 2020-02-27 08:25 | PDOC CRITICAL CARE PROG REPORT ---
General Date:: 02/27/20 ICU Day:: 2 Ventilator Day:: 2 Hospital Day:: 2 Resuscitation Status: Full Code Events in the past 12 to 24 Hours:: Fever resolved. Question of encephalitis. On acyclovir. Review of systems relevant to events:: Neurologic. Reason for ICU Addmission:: AMS requiring much sedation and intubation. - Medications: Medications reviewed and adjusted accordingly: Yes Vasopressors:: None Sedation:: Diprivan, versed. Physical Exam Vital Signs: Temp Pulse Resp BP Pulse Ox 97.9 F 114 H 21 H 96/53 L 96 02/27/20 05:14 02/26/20 20:00 02/26/20 18:00 02/27/20 06:00 02/27/20 06:01 Intake & Output 02/26/20 02/27/20 02/28/20 06:59 06:59 05:59 Intake Total 3296.2 1961 Output Total 445 1760 Balance 2851.2 201 Weight 93.1 kg 91.6 kg Weight/Height Weight 91.6 kg Height 6 ft 2 in General appearance: PRESENT: thin, well-developed Head exam: PRESENT: atraumatic, normocephalic Eye exam: PRESENT: conjunctiva pink, EOMI, PERRLA. ABSENT: scleral icterus Ear exam: PRESENT: normal external ear exam Mouth exam: PRESENT: moist, tongue midline Respiratory exam: PRESENT: clear to auscultation nikolas. ABSENT: rales, rhonchi, wheezes Cardiovascular exam: PRESENT: RRR. ABSENT: diastolic murmur, rubs, systolic murmur GI/Abdominal exam: PRESENT: normal bowel sounds, soft. ABSENT: distended, guarding, mass, organolmegaly, rebound, tenderness Rectal exam: PRESENT: deferred Gentrourinary exam: PRESENT: indwelling catheter Extremities exam: PRESENT: full ROM. ABSENT: calf tenderness, clubbing, pedal edema Musculoskeletal exam: PRESENT: normal inspection Neurological exam: PRESENT: other - Sedated heavily Skin exam: PRESENT: dry, intact, warm. ABSENT: cyanosis, rash Tubes/Lines: PRESENT: Endotracheal Tube, Nasogastic Tube Laboratory/Radiographs Laboratory Results: 02/27/20 04:33 02/27/20 04:33 02/27/20 02/27/20 02/27/20 00:30 04:33 04:33 WBC 16.0 H RBC 4.67 Hgb 15.0 Hct 43.7 MCV 94 MCH 32.0 MCHC 34.2 RDW 13.6 Plt Count 198 Seg Neutrophils % Not Reportable Carbonic Acid 1.16 HCO3/H2CO3 Ratio 20:1 ABG pH 7.40 ABG pCO2 38.4 ABG pO2 71.8 L ABG HCO3 23.2 ABG O2 Saturation 94.5 ABG Base Excess -1.3 FiO2 21% Sodium 138.8 Potassium 4.3 Chloride 110 H Carbon Dioxide 20 L Anion Gap 9 BUN 16 Creatinine 0.73 Est GFR ( Amer) > 60 Glucose 206 H Calcium 8.7 Total Bilirubin 0.6 AST 19 Alkaline Phosphatase 58 Total Protein 5.1 L Albumin 2.9 L 02/25/20 08:42 Troponin I < 0.012 Impressions: Chest X-Ray 02/25/20 08:23 IMPRESSION: NO ACUTE RADIOGRAPHIC FINDING IN THE CHEST. Head CT 02/25/20 08:23 IMPRESSION: NORMAL BRAIN CT WITHOUT CONTRAST. EVIDENCE OF ACUTE STROKE: NO. All labs, radiographs, diagnostic studies and EKGs were personally reviewed: Yes In addition, reports of radiographic and diagnostic studies were read: Yes Assessment and Plan - Diagnosis (1) Delirium Is this a current diagnosis for this admission?: Yes Plan: When trying to lighten him he once again got too difficult to manage without sedation. Will try again today. (2) Diabetes mellitus Qualifiers: Diabetes mellitus assisted insulin use: with assisted use Diabetes mellitus complication status: with hypoglycemia Is this a current diagnosis for this admission?: Yes Plan: Controlled. (3) Hypoglycemia Is this a current diagnosis for this admission?: Yes Plan: Resolved. At this point I doubt this was the cause 2 days after the event. Plan Summary: Plan to keep on acyclovir. Wean sedation again. Critical Time Critical Time (minutes): 35 Level of Care: ICU Anticipated discharge: Home Anticipated DC Timeframe: Other -: 1. The care of a critical patient is a dynamic process. This note is a customer service representative teacher synopsis but static in nature. The timeframe for treatments given in order is not necessarily the actual time these treatments may have been done. 2. This patient requires critical care secondary to ongoing requirements for therapy not offered or safe outside the critical care environment. Transfer to a lower level of care will result in altered life or limb morbidity and mortality. 3. Multidisciplinary rounds completed. 4. ABCDE bundle addressed.
[2020-02-27] MEDS: ENOXAPARIN SODIUM INJ 40 MG/0.4 ML DISP.SYRIN SUBCUT SCH (09:24)
[2020-02-27] MEDS: PANTOPRAZOLE SODIUM 40 MG VIAL IV SCH (09:24)
[2020-02-27] MEDS: ACYCLOVIR SODIUM 700 MG in NORMAL SALINE 100 ML IV SCH ×3 (11:07→21:20)
[2020-02-27] MEDS: LORAZEPAM INJ 2 MG/1 ML VIAL IV PRN ×2 (15:54→18:40)
[2020-02-27] MEDS: LINEZOLID 600 MG/300 ML RTUPB IV SCH (17:12)
[2020-02-27] MEDS ORDERED: LEVETIRACETAM 1000 MG/NACL-ISO 1,000 MG/100 ML RTUPB IV ONE (18:58)
[2020-02-27 21:14] LABS: ARTERIAL BLOOD BASE EXCESS -3.3 mmol/L; ARTERIAL BLOOD H2CO3 1.08 mmol/L (1.05-1.35); ARTERIAL BLOOD HCO3 21.1 mmol/L (20-24); ARTERIAL BLOOD O2 SATURATION 95.3 % (94-98); ARTERIAL BLOOD PCO2 35.8 mmHg (35-45); ARTERIAL BLOOD PH 7.39 (7.35-7.45); ARTERIAL BLOOD PO2 76.6 mmHg (80-100); ARTERIAL BLOOD TOTAL CO2 22.2 mmol/L (23-27)
[2020-02-27 21:15] LABS: ARTERIAL BLOOD FIO2 21%
[2020-02-28] MEDS: LORAZEPAM INJ 2 MG/1 ML VIAL IV PRN ×3 (01:23→12:13)
[2020-02-28] MEDS: RINGERS SOLUTION,LACTATED 1,000 ML IV PRN ×2 (01:51→12:18)
[2020-02-28] MEDS: PROPOFOL 1,000 MG/100 ML INFUS..BTL IV PRN ×2 (02:30→05:59)
[2020-02-28] MEDS: LINEZOLID 600 MG/300 ML RTUPB IV SCH ×2 (05:00→18:02)
[2020-02-28] MEDS: ACYCLOVIR SODIUM 700 MG in NORMAL SALINE 100 ML IV SCH ×3 (05:00→22:22)
[2020-02-28] MEDS: INSULIN REG, HUMAN 100 UNIT/ML 3 ML VIAL (PYX) SUBCUT SCH ×3 (05:06→18:04)
[2020-02-28 05:54] LABS: ABSOLUTE BASOPHILS # (AUTO) 0.1 10^3/uL (0.0-0.2); ABSOLUTE EOSINOPHILS # (AUTO) 0.1 10^3/uL (0.0-0.6); ABSOLUTE MONOCYTES (AUTO) 1.3 10^3/uL (0.1-1.4); ABSOLUTE NEUT (AUTO) 9.5 10^3/uL (1.7-8.2); BASOPHILS % (AUTO) 0.5 % (0-2); EOSINOPHILS % (AUTO) 0.4 % (0-6); HEMATOCRIT 41.6 % (37.9-51.0); HEMOGLOBIN 14.1 g/dL (13.5-17.0); LYMPHOCYTES % (AUTO) 15.7 % (13-45); MEAN CORPUSCULAR HEMOGLOBIN 32.2 pg (27.0-33.4); MEAN CORPUSCULAR HGB CONC 33.8 g/dL (32.0-36.0); MEAN CORPUSCULAR VOLUME 95 fl (80-97); MONOCYTES % (AUTO) 10.4 % (3-13); PLATELET COUNT 188 10^3/uL (150-450); RED BLOOD COUNT 4.37 10^6/uL (4.35-5.55); RED CELL DISTRIBUTION WIDTH 13.7 % (11.5-14.0); TOTAL CELLS COUNTED % (AUTO) 100 %
[2020-02-28] MEDS: LEVETIRACETAM 1000 MG/NACL-ISO 1,000 MG/100 ML RTUPB IV SCH ×2 (05:56→17:27)
[2020-02-28 06:06] LABS: ALKALINE PHOSPHATASE 66 U/L (38-126); ANION GAP 13 (5-19); ASPARTATE AMINO TRANSFERASE 15 U/L (17-59); BILIRUBIN,DIRECT 0.2 mg/dL (0.0-0.4); BILIRUBIN,TOTAL 0.7 mg/dL (0.2-1.3); BLOOD UREA NITROGEN 24 mg/dL (7-20); CARBON DIOXIDE 21 mmol/L (22-30); CHLORIDE 107 mmol/L (98-107); GLUCOSE 257 mg/dL (75-110); POTASSIUM 4.6 mmol/L (3.6-5.0); TOTAL PROTEIN 5.1 g/dL (6.3-8.2)
[2020-02-28] MEDS: PANTOPRAZOLE SODIUM 40 MG VIAL IV SCH (09:20)
[2020-02-28] MEDS: ENOXAPARIN SODIUM INJ 40 MG/0.4 ML DISP.SYRIN SUBCUT SCH (09:20)
[2020-02-28] MEDS: INSULIN GLARGINE,HUM.REC.ANLOG 1,000 UNIT/10 ML VIAL SUBCUT SCH (09:40)
[2020-02-28 11:13] LABS: ARTERIAL BLOOD BASE EXCESS -4.7 mmol/L; ARTERIAL BLOOD H2CO3 1.09 mmol/L (1.05-1.35); ARTERIAL BLOOD HCO3 20.1 mmol/L (20-24); ARTERIAL BLOOD O2 SATURATION 96.1 % (94-98); ARTERIAL BLOOD PCO2 36.2 mmHg (35-45); ARTERIAL BLOOD PH 7.36 (7.35-7.45); ARTERIAL BLOOD PO2 84.6 mmHg (80-100); ARTERIAL BLOOD TOTAL CO2 21.2 mmol/L (23-27)
[2020-02-28 11:14] LABS: ARTERIAL BLOOD FIO2 25%
[2020-02-28] MEDS ORDERED: DEXMEDETOMIDINE IN 0.9 % NACL 400 MCG/100 ML RTUPB IV ONE (11:53)
[2020-02-28] MEDS: DEXMEDETOMIDINE IN 0.9 % NACL 400 MCG/100 ML RTUPB IV PRN ×2 (12:00→18:33)
--- NOTE | 2020-02-28 13:42 | PDOC CRITICAL CARE PROG REPORT ---
General Date:: 02/28/20 ICU Day:: 3 Hospital Day:: 3 Resuscitation Status: Full Code Events in the past 12 to 24 Hours:: Extubated but still not following commands. Review of systems relevant to events:: Neurological Reason for ICU Addmission:: Extubated but still encephalopathic - Medications: Medications reviewed and adjusted accordingly: Yes Vasopressors:: None Sedation:: Precedex Physical Exam Vital Signs: Temp Pulse Resp BP Pulse Ox 99.1 F 91 22 H 128/60 H 95 02/28/20 12:00 02/28/20 12:00 02/28/20 11:56 02/28/20 12:00 02/28/20 12:00 Intake & Output 02/27/20 02/28/20 02/29/20 07:59 06:59 06:59 Intake Total 1119 Output Total 995 Balance 124 Weight Weight/Height Weight 93.2 kg Height 6 ft 2 in General appearance: PRESENT: no acute distress, well-developed, well-nourished Head exam: PRESENT: atraumatic, normocephalic Eye exam: PRESENT: conjunctiva pink, PERRLA, other - Conjugate. ABSENT: scleral icterus Ear exam: PRESENT: normal external ear exam Mouth exam: PRESENT: moist, tongue midline Respiratory exam: PRESENT: clear to auscultation nikolas, rhonchi. ABSENT: rales, wheezes Cardiovascular exam: PRESENT: RRR. ABSENT: diastolic murmur, rubs, systolic murmur GI/Abdominal exam: PRESENT: normal bowel sounds, soft. ABSENT: distended, guarding, mass, organolmegaly, rebound, tenderness Rectal exam: PRESENT: deferred Gentrourinary exam: PRESENT: indwelling catheter Extremities exam: PRESENT: full ROM. ABSENT: calf tenderness, clubbing, pedal edema Musculoskeletal exam: PRESENT: normal inspection Neurological exam: PRESENT: altered, CN II-XII grossly intact, other - Still not following commands Skin exam: PRESENT: dry, intact, warm. ABSENT: cyanosis, rash Laboratory/Radiographs Laboratory Results: 02/28/20 05:05 02/28/20 05:05 02/27/20 02/28/20 02/28/20 21:00 05:05 05:05 WBC 13.0 H RBC 4.37 Hgb 14.1 Hct 41.6 MCV 95 MCH 32.2 MCHC 33.8 RDW 13.7 Plt Count 188 Seg Neutrophils % 73.0 Carbonic Acid 1.08 HCO3/H2CO3 Ratio 19:1 ABG pH 7.39 ABG pCO2 35.8 ABG pO2 76.6 L ABG HCO3 21.1 ABG O2 Saturation 95.3 ABG Base Excess -3.3 FiO2 21% Sodium 140.7 Potassium 4.6 Chloride 107 Carbon Dioxide 21 L Anion Gap 13 BUN 24 H Creatinine 0.77 Est GFR ( Amer) > 60 Glucose 257 H Calcium 9.0 Total Bilirubin 0.7 AST 15 L Alkaline Phosphatase 66 Total Protein 5.1 L Albumin 3.0 L 02/28/20 10:57 WBC RBC Hgb Hct MCV MCH MCHC RDW Plt Count Seg Neutrophils % Carbonic Acid 1.09 HCO3/H2CO3 Ratio 18:1 ABG pH 7.36 ABG pCO2 36.2 ABG pO2 84.6 ABG HCO3 20.1 ABG O2 Saturation 96.1 ABG Base Excess -4.7 FiO2 25% Sodium Potassium Chloride Carbon Dioxide Anion Gap BUN Creatinine Est GFR ( Amer) Glucose Calcium Total Bilirubin AST Alkaline Phosphatase Total Protein Albumin 02/26/20 18:48 Nephrostomy - Not Specified Urine Culture - Final NO GROWTH 2 DAYS 02/25/20 08:42 Troponin I < 0.012 Impressions: Chest X-Ray 02/25/20 08:23 IMPRESSION: NO ACUTE RADIOGRAPHIC FINDING IN THE CHEST. Head CT 02/25/20 08:23 IMPRESSION: NORMAL BRAIN CT WITHOUT CONTRAST. EVIDENCE OF ACUTE STROKE: NO. All labs, radiographs, diagnostic studies and EKGs were personally reviewed: Yes In addition, reports of radiographic and diagnostic studies were read: Yes Assessment and Plan - Diagnosis (1) Delirium Is this a current diagnosis for this admission?: Yes Plan: Delirium or enceohalopathy, he is more encephalopathic. He has had much sedation. Will try repeat EEG off diprivan and versed Saturday. Still have not ruled out transfer for full neurological work-up. (2) Diabetes mellitus Qualifiers: Diabetes mellitus intermediate insulin use: with local company intermodal truck driver use Diabetes mellitus complication status: with hypoglycemia Is this a current diagnosis for this admission?: Yes Plan: Controlled (3) Hypoglycemia Is this a current diagnosis for this admission?: Yes Plan: This has resolved for 2 days and I doubt this is a factor. Plan Summary: EEG Saturday, MRI if he will be still long enough. Maintain in the ICU until more awake. Critical Time Critical Time (minutes): 35 Level of Care: ICU Anticipated discharge: Home Anticipated DC Timeframe: Other -: 1. The care of a critical patient is a dynamic process. This note is a access service representative synopsis but static in nature. The timeframe for treatments given in order is not necessarily the actual time these treatments may have been done. 2. This patient requires critical care secondary to ongoing requirements for therapy not offered or safe outside the critical care environment. Transfer to a lower level of care will result in altered life or limb morbidity and mortality. 3. Multidisciplinary rounds completed. 4. ABCDE bundle addressed.
[2020-02-29] MEDS: INSULIN REG, HUMAN 100 UNIT/ML 3 ML VIAL (PYX) SUBCUT SCH ×6 (00:23→23:07)
[2020-02-29] MEDS: INSULIN GLARGINE,HUM.REC.ANLOG 1,000 UNIT/10 ML VIAL SUBCUT SCH ×3 (01:06→21:13)
[2020-02-29] MEDS: RINGERS SOLUTION,LACTATED 1,000 ML IV PRN (03:45)
[2020-02-29 05:05] LABS: ALBUMIN 3.2 g/dL (3.5-5.0); ALKALINE PHOSPHATASE 76 U/L (38-126); ANION GAP 11 (5-19); ASPARTATE AMINO TRANSFERASE 17 U/L (17-59); BILIRUBIN,DIRECT 0.3 mg/dL (0.0-0.4); BILIRUBIN,TOTAL 1.1 mg/dL (0.2-1.3); BLOOD UREA NITROGEN 17 mg/dL (7-20); CALCIUM 9.4 mg/dL (8.4-10.2); CARBON DIOXIDE 25 mmol/L (22-30); CHLORIDE 105 mmol/L (98-107); GLUCOSE 305 mg/dL (75-110); POTASSIUM 4.6 mmol/L (3.6-5.0); TOTAL PROTEIN 5.8 g/dL (6.3-8.2)
[2020-02-29] MEDS: ACYCLOVIR SODIUM 700 MG in NORMAL SALINE 100 ML IV SCH (05:05)
[2020-02-29] MEDS: LEVETIRACETAM 1000 MG/NACL-ISO 1,000 MG/100 ML RTUPB IV SCH (05:47)
[2020-02-29] MEDS: LINEZOLID 600 MG/300 ML RTUPB IV SCH (05:48)
[2020-02-29] MEDS: ENOXAPARIN SODIUM INJ 40 MG/0.4 ML DISP.SYRIN SUBCUT SCH (09:35)
--- NOTE | 2020-02-29 11:38 | RADIOLOGY REPORT (SQ) ---
EXAM DESCRIPTION: MRI HEAD WITHOUT IMAGES COMPLETED DATE/TIME: 02/29/2020 11:00 am REASON FOR STUDY: Possible seizure. No history. Neg CT head. COMPARISON: CT brain dated 02/25/2020 TECHNIQUE: Multiplanar imaging includes non-contrasted T1, T2, FLAIR, and diffusion with ADC map seq uences. Images stored on PACS. LIMITATIONS: Study is very limited secondary to patient motion despite multiple attempts. FINDINGS: ANATOMY: No anomalies. Normal vascular flow voids. Pituitary fossa normal. CSF SPACES: Normal in size and contour. No hemorrhage. CEREBRUM: Sulci and gyri normal in size and contour. Normal white matter signal on FLAIR imaging. No evidence of hemorrhage, mass, or extraaxial fluid collection. POSTERIOR FOSSA: No signal alteration. No hemorrhage. No edema, masses or mass effect. Internal rayna tory canals, cerebello-pontine angles, mastoids normal. DIFFUSION IMAGING: Negative for acute or sub-acute infarction. ORBITS: No masses. Globes normal. PARANASAL SINUSES: No fluid levels. Mucosa normal. OTHER: No other significant finding. IMPRESSION: No acute findings. Very limited study secondary to patient motion. EVIDENCE OF ACUTE STROKE: NO. TECHNICAL DOCUMENTATION: JOB ID: [id number] 2010 [employer]- All Rights Reserved Reading location - IP/workstation name: [email or web address]
[2020-02-29] MEDS ORDERED: ACETAMINOPHEN 325 MG TABLET PO PRN (19:50)
[2020-02-29] MEDS ORDERED: ACETAMINOPHEN 325 MG TABLET ONE ×2 (19:54→20:01)
[2020-03-01] MEDS: INSULIN REG, HUMAN 100 UNIT/ML 3 ML VIAL (PYX) SUBCUT SCH ×2 (05:10→11:29)
[2020-03-01] MEDS: ENOXAPARIN SODIUM INJ 40 MG/0.4 ML DISP.SYRIN SUBCUT SCH (10:12)
[2020-03-01] MEDS: INSULIN GLARGINE,HUM.REC.ANLOG 1,000 UNIT/10 ML VIAL SUBCUT SCH (10:12)
[2020-03-01 11:36] VITALS: BP 145/82
--- NOTE | 2020-03-01 14:21 | PDOC DISCHARGE SUMMARY ---
Impression - Admit/DC Date/PCP Admission Date/Primary Care Provider: 02/25/20 10:25 Discharge Date: 03/01/20 - Discharge Diagnosis (1) Delirium Is this a current diagnosis for this admission?: Yes (2) Diabetes mellitus Is this a current diagnosis for this admission?: Yes (3) Hypoglycemia Is this a current diagnosis for this admission?: Yes - Assessment Summary: Patient will be admitted in the ICU due to need for four-point restraint due to severe agitation. Hospitalist will be the attending physician for him. Work-up ongoing for acute confusional state. MRI pending. - Additional Information Resuscitation Status: Full Code Home Medications: Insulin Aspart [Novolog Insulin 100 Unit/1 ml 10 ml] 0 unit SUBCUT .SLD SCALE 02/25/20 Insulin Glargine,Hum.rec.anlog [Toujeo Solostar] 60 unit SQ QAM 02/25/20 History of Present Illiness History of Present Illness: VANESSA HAIRSTON is a 54 year old male who was admitted to the ICU after becoming encephalopathic at home. He was sleeping with his who found him kicking her. He was delirious at the time. EMS called and it was said 7 people needed to hold him down and place in leather restraints. He received so much sedation he was intubated for airway protection. He was on fairly high dose Diprivan and a versed drip. An EEG was suggestive of seizures but none were seen. He has awakened and is back to his usual state. There are members of his family with seizures, one contracted them at age 54 as well. EEG repeated today and plan to discharge. Hospital Course Hospital Course: He was intubated for 2 days but finally was extubated taking about a day to fully come around mentally. Physical Exam Vital Signs: Temp Pulse Resp BP Pulse Ox 98.3 F 77 20 126/70 H 99 03/01/20 10:00 03/01/20 07:30 02/29/20 07:30 02/29/20 17:02 02/29/20 16:01 Intake & Output 02/29/20 03/01/20 03/02/20 06:59 06:59 06:59 Intake Total 3248 2360 100 Output Total 4145 1350 0 Balance -897 1010 100 Weight 92.2 kg 85.6 kg General appearance: PRESENT: no acute distress, well-developed, well-nourished Head exam: PRESENT: atraumatic, normocephalic Eye exam: PRESENT: conjunctiva pink, EOMI, PERRLA. ABSENT: scleral icterus Ear exam: PRESENT: normal external ear exam Mouth exam: PRESENT: moist, tongue midline Respiratory exam: PRESENT: clear to auscultation nikolas. ABSENT: rales, rhonchi, wheezes Cardiovascular exam: PRESENT: RRR. ABSENT: diastolic murmur, rubs, systolic murmur Pulses: PRESENT: normal dorsalis pedis pul GI/Abdominal exam: PRESENT: normal bowel sounds, soft. ABSENT: distended, guarding, mass, organolmegaly, rebound, tenderness Rectal exam: PRESENT: deferred Extremities exam: PRESENT: full ROM. ABSENT: calf tenderness, clubbing, pedal edema Neurological exam: PRESENT: alert, awake, oriented to person, oriented to place, oriented to time, oriented to situation, CN II-XII grossly intact. ABSENT: motor sensory deficit Psychiatric exam: PRESENT: appropriate affect, normal mood. ABSENT: homicidal ideation, suicidal ideation Skin exam: PRESENT: dry, intact, warm. ABSENT: cyanosis, rash Results Laboratory Results: WBC 13.0 10^3/uL (4.0-10.5) H 02/28/20 05:05 RBC 4.37 10^6/uL (4.35-5.55) 02/28/20 05:05 Hgb 14.1 g/dL (13.5-17.0) 02/28/20 05:05 Hct 41.6 % (37.9-51.0) 02/28/20 05:05 MCV 95 fl (80-97) 02/28/20 05:05 MCH 32.2 pg (27.0-33.4) 02/28/20 05:05 MCHC 33.8 g/dL (32.0-36.0) 02/28/20 05:05 RDW 13.7 % (11.5-14.0) 02/28/20 05:05 Plt Count 188 10^3/uL (150-450) 02/28/20 05:05 Lymph % (Auto) 15.7 % (13-45) 02/28/20 05:05 Yates % (Auto) 10.4 % (3-13) 02/28/20 05:05 Eos % (Auto) 0.4 % (0-6) 02/28/20 05:05 Baso % (Auto) 0.5 % (0-2) 02/28/20 05:05 Absolute Neuts (auto) 9.5 10^3/uL (1.7-8.2) H 02/28/20 05:05 Absolute Lymphs (auto) 2.0 10^3/uL (0.5-4.7) 02/28/20 05:05 Absolute Monos (auto) 1.3 10^3/uL (0.1-1.4) 02/28/20 05:05 Absolute Eos (auto) 0.1 10^3/uL (0.0-0.6) 02/28/20 05:05 Absolute Basos (auto) 0.1 10^3/uL (0.0-0.2) 02/28/20 05:05 Total Counted 100 02/27/20 04:33 Seg Neutrophils % 73.0 % (42-78) 02/28/20 05:05 Seg Neuts % (Manual) 91 % (42-78) H 02/27/20 04:33 Lymphocytes % (Manual) 5 % (13-45) L 02/27/20 04:33 Monocytes % (Manual) 4 % (3-13) 02/27/20 04:33 Eosinophils % (Manual) 0 % (0-6) 02/27/20 04:33 Basophils % (Manual) 0 % (0-2) 02/27/20 04:33 Abs Neuts (Manual) 14.6 10^3/uL (1.7-8.2) H 02/27/20 04:33 Abs Lymphs (Manual) 0.8 10^3/uL (0.5-4.7) 02/27/20 04:33 Abs Monocytes (Manual) 0.6 10^3/uL (0.1-1.4) 02/27/20 04:33 Absolute Eos (Manual) 0.0 10^3/uL (0.0-0.6) 02/27/20 04:33 Abs Basophils (Manual) 0.0 10^3/uL (0.0-0.2) 02/27/20 04:33 Platelet Comment ADEQUATE 02/27/20 04:33 RBC Morph Comment NORMO-CYTIC/CHROMIC 02/27/20 04:33 PT 12.1 SEC (11.4-15.4) 02/25/20 08:42 INR 0.88 02/25/20 08:42 APTT 29.3 SEC (23.5-35.8) 02/25/20 15:10 Carbonic Acid 1.09 mmol/L (1.05-1.35) 02/28/20 10:57 HCO3/H2CO3 Ratio 18:1 02/28/20 10:57 ABG pH 7.36 (7.35-7.45) 02/28/20 10:57 ABG pCO2 36.2 mmHg (35-45) 02/28/20 10:57 ABG pO2 84.6 mmHg (80-100) 02/28/20 10:57 ABG HCO3 20.1 mmol/L (20-24) 02/28/20 10:57 ABG Total CO2 21.2 mmol/L (23-27) L 02/28/20 10:57 ABG O2 Saturation 96.1 % (94-98) 02/28/20 10:57 ABG Base Excess -4.7 mmol/L 02/28/20 10:57 FiO2 25% 02/28/20 10:57 Sodium 140.7 mmol/L (137-145) 02/29/20 04:28 Potassium 4.6 mmol/L (3.6-5.0) 02/29/20 04:28 Chloride 105 mmol/L (98-107) 02/29/20 04:28 Carbon Dioxide 25 mmol/L (22-30) 02/29/20 04:28 Anion Gap 11 (5-19) 02/29/20 04:28 BUN 17 mg/dL (7-20) 02/29/20 04:28 Creatinine 0.65 mg/dL (0.52-1.25) 02/29/20 04:28 Est GFR ( Amer) > 60 (>60) 02/29/20 04:28 Est GFR (MDRD) Non-Af > 60 (>60) 02/29/20 04:28 Glucose 305 mg/dL (75-110) H 02/29/20 04:28 POC Glucose 213 mg/dL (70-110) H 03/01/20 09:50 Calcium 9.4 mg/dL (8.4-10.2) 02/29/20 04:28 Magnesium 1.7 mg/dL (1.6-2.3) 02/25/20 15:10 Total Bilirubin 1.1 mg/dL (0.2-1.3) 02/29/20 04:28 Direct Bilirubin 0.3 mg/dL (0.0-0.4) 02/29/20 04:28 Neonat Total Bilirubin Not Reportable 02/29/20 04:28 Neonat Direct Bilirubin Not Reportable 02/29/20 04:28 Neonat Indirect Bili Not Reportable 02/29/20 04:28 AST 17 U/L (17-59) 02/29/20 04:28 ALT 12 U/L (<50) 02/29/20 04:28 Alkaline Phosphatase 76 U/L (38-126) 02/29/20 04:28 Ammonia 31.4 umol/L (9-33) 02/25/20 15:10 Troponin I < 0.012 ng/mL 02/25/20 08:42 Total Protein 5.8 g/dL (6.3-8.2) L 02/29/20 04:28 Albumin 3.2 g/dL (3.5-5.0) L 02/29/20 04:28 Vitamin B12 991.0 pg/mL (239-931) H 02/25/20 18:55 TSH 0.64 uIU/mL (0.47-4.68) 02/25/20 15:10 Urine Color YELLOW 02/25/20 09:11 Urine Appearance CLEAR 02/25/20 09:11 Urine pH 7.0 (5.0-9.0) 02/25/20 09:11 Ur Specific [place] 1.018 02/25/20 09:11 Urine Protein 100 mg/dL (NEGATIVE) H 02/25/20 09:11 Urine Glucose (UA) >=500 mg/dL (NEGATIVE) H 02/25/20 09:11 Urine Ketones NEGATIVE mg/dL (NEGATIVE) 02/25/20 09:11 Urine Blood NEGATIVE (NEGATIVE) 02/25/20 09:11 Urine Nitrite (Reflex) NEGATIVE (NEGATIVE) 02/25/20 09:11 Urine Bilirubin NEGATIVE (NEGATIVE) 02/25/20 09:11 Urine Urobilinogen NEGATIVE mg/dL (<2.0) 02/25/20 09:11 Leukocyte Esterase Rfl NEGATIVE (NEGATIVE) 02/25/20 09:11 Urine RBC (Auto) 2 /HPF 02/25/20 09:11 Urine WBC (Reflex) 2 /HPF 02/25/20 09:11 Squamous Epi Cells Auto <1 /HPF 02/25/20 09:11 Urine Mucus (Auto) RARE /LPF 02/25/20 09:11 Urine Ascorbic Acid NEGATIVE (NEGATIVE) 02/25/20 09:11 Urine Opiates Screen NEGATIVE 02/25/20 09:11 Urine Methadone Screen NEGATIVE 02/25/20 09:11 Ur Barbiturates Screen NEGATIVE 02/25/20 09:11 Ur Phencyclidine Scrn NEGATIVE 02/25/20 09:11 Ur Amphetamines Screen NEGATIVE 02/25/20 09:11 U Benzodiazepines Scrn NEGATIVE 02/25/20 09:11 Urine Cocaine Screen NEGATIVE 02/25/20 09:11 U Marijuana (THC) Screen NEGATIVE 02/25/20 09:11 Serum Alcohol < 10 mg/dL (NONE DETECTED) 02/25/20 08:42 RPR NONREACTIVE (NONREACTIVE) 02/25/20 18:55 02/25/20 08:42 Troponin I < 0.012 Impressions: Chest X-Ray 02/25/20 00:00 IMPRESSION: NG tube and endotracheal tube are in good position. Chest X-Ray 02/25/20 08:23 IMPRESSION: NO ACUTE RADIOGRAPHIC FINDING IN THE CHEST. Head CT 02/25/20 08:23 IMPRESSION: NORMAL BRAIN CT WITHOUT CONTRAST. EVIDENCE OF ACUTE STROKE: NO. Head MRI 02/29/20 00:00 IMPRESSION: No acute findings. Very limited study secondary to patient motion. EVIDENCE OF ACUTE STROKE: NO. Plan Health Concerns: Recurrence Plan of Treatment: Follow up with primary this week if possible Goals: To get back to baseline function Critical Time: 35 Level of Care: MEDICAL Stroke Is this a Stroke Patient?: No Acute Heart Failure Is this a Heart Failure Patient?: No
--- NOTE | 2020-03-01 18:40 | NEURO WORKBENCH EEG REPORT ---
EEG Report Patient: Isaac Bowman ID: [id number] Referring Doctor: Solomon Marroquin DOS: 03/01/2020 Medications: lovenox, insulin History This is a 54 year old left handed male with a history of type 2 diabetes admitted with acute encephalopathy. He had a prior EEG on 02/26/2020 that showed occasional left frontal sharp waves and a burst suppression pattern. He is off versed and diprivan and extubated. This EEG was requested for evaluation off versed and diprivan. EEG Interpretation This EEG was recorded in the awake state with mild drowsiness. The awake EEG is characterized by a well-organized background without a well-developed posterior dominant rhythm but a noted posterior rhythm of 9 Hz. The remainder of the background was characterized by a combination of alpha with some beta frequencies. There were brief periods with theta and minimal delta activity intermixed in the background that are most consistent with drowsiness. There was slightly higher amplitude over the left frontal-central region but no significant asymmetries. Photic stimulation resulted in no significant changes. Hyperventilation resulted in generalized slowing of the background. There were no epileptiform abnormalities. The EKG showed a regular rhythm. EEG Classification * Normal EEG Impression This EEG is within normal limits for age. Compared to the prior EEG dated 02/26/2020, it has improved. INTERPRETING NEUROLOGIST: Jodee Oh MD, FRCPC Board Certified in Neurology, with special qualification in Child Neurology, and in Clinical Neurophysiology [facility]
[2020-03-02] MEDS ORDERED: INFLUENZA QUAD (6MOS+) 2020-21 VAC 0.5 ML SYR IM ONE (08:00)
== END 2020-03-01 14:53 | disposition home or self-care (01) | DRG 948 ==
LOC: ER 08:19 → EH 10:25 → ICU 18:57
PROVIDERS: ADMIT Anesthesiology; ATTEND Anesthesiology
PROC: 00JU3ZZ Inspection of Spinal Canal, Percutaneous Approach (ICD-10-PCS; principal; 2020-02-26)
PROC: 0BH17EZ Insertion of Endotracheal Airway into Trachea, Via Natural or Artificial Opening (ICD-10-PCS; 2020-02-26)
PROC: 5A1945Z Respiratory Ventilation, 24-96 Consecutive Hours (ICD-10-PCS; 2020-02-26)
DX: R41.0 Disorientation, unspecified (principal); E11.649 Type 2 diabetes mellitus with hypoglycemia without coma; F17.200 Nicotine dependence, unspecified, uncomplicated; Z88.2 Allergy status to sulfonamides; Z79.4 Long term (current) use of insulin; Z78.1 Physical restraint status; Z82.0 Family history of epilepsy and other diseases of the nervous system
CPT/HCPCS: 31500; 36415; 36600; 70450; 70551; 71045; 80053; 80307; 81001; 82140; 82607; 82803; 82962; 83735; 84443; 84484; 85025; 85610; 85730; 86592; 87040; 87086; 93005; 93010; 94002; 94003; 95819; 96361; 96374; 96375; 99285; 99291; C9113; J0133; J0696; J1200; J1630; J1650; J1815; J1953; J2020; J2060; J2250; J2704; J2930; J3411; J3490; J7030; J7042; J7050; J7120